=== PATIENT | female | born 1990 | race Caucasian/White ===

== ENCOUNTER 2021-04-08 00:12 | Emergency (ER) | payer MEDICAID ==
[2021-04-08] MEDS ORDERED: Dexamethasone 10 MG/ML SDV IM STA (00:58)
--- NOTE | 2021-04-08 01:00 | EDM.PDOC ---
ED HPI GENERAL MEDICAL PROBLEM - General Chief Complaint: Back Pain or Injury Stated Complaint: NERVE PAIN Time Seen by Provider: 04/08/21 00:48 - History of Present Illness INITIAL COMMENTS - FREE TEXT/NARRATIVE: History of present illness: [] Patient has severe left back pain and left hip pain. Right now the pain is in her back. Is very severe. Is been going on for more than a month. She has had an MRI and been told she has bulging disc. She has an appointment in May. Patient's pain radiates down the left side. She has a little bit of tingling in the but but she does not have any lack of sensation in the saddle area or lower extremities. She does not have any loss of motor function. She does not have any loss of bowel or bladder control. She does have urinary frequency for 24 hours without dysuria. Review of systems: As per history of present illness and below otherwise all systems reviewed and negative. Past medical history: As per history of present illness and as reviewed below otherwise nonco ntributory. Surgical history: As per history of present illness and as reviewed below otherwise noncontributory. Social history: No reported history of drug or alcohol abuse. Family history: As per history of present illness and as reviewed below otherwise noncontributory. Physical exam: Constitutional - well developed, well-nourished and in no acute distress HEENT - normocephalic, no evidence of trauma - external nose and mouth normal - no mass in neck and no JVD - mucosae moist EYES - full EOM, PERRL, no icterus - no evidence of inflammation, injection, or drainage Respiratory - no respiratory distress, equal bilateral expansion, lungs clear to auscultation and no abnormal lung sounds Cardiovascular - Regular Rhythm with S1 and S2 appreciated and no murmur, gallop or rub. GI - abdomen soft without distension or organomegaly - normal bowel sounds - no guard or rebound Musculoskeletal straight leg raise causes pain in left side moving to both right and left leg. There is contralateral pain in the right leg is lifted No gross deformity of long bones or joints - no tenderness, swelling or edema Neurologic -DTR brisk in lower extremities. Alert and oriented times four - CN II-XII grossly intact - motor sensory and coordination symmetrically normal Psychiatric - appropriate mood and affect with normal thought content Hematologic - No petechiae or purpura - mucosa appropriate color and sclera not pale - normal nail bed color and refill Integument - no rash or evidence of trauma - normal turgor Diagnostics: [] Therapeutics: [] Impression: [] Plan: [] Definitive disposition and diagnosis as appropriate pending reevaluation and review of above. left lower back Pain Score (Numeric/FACES): 8 - Related Data Allergies Allergy/AdvReac Type Severity Reaction Status Date / Time codeine Allergy Stomach Verified 04/08/21 00:38 Ache Home Meds: Home Meds Gabapentin 04/08/21 [History] methylPREDNISolone [Medrol Dose Pack] 4 mg PO DAILY #21 tab 04/08/21 [Rx] methylPREDNISolone [Medrol Dose Pack] 4 mg PO DAILY #21 tab 04/08/21 [Rx] Past Medical History - Past Health History Medical/Surgical History: Denies Medical/Surgical History HEENT History: Reports: None Cardiovascular History: Reports: None Respiratory History: Reports: None Gastrointestinal History: Reports: None Genitourinary History: Reports: None [employer] History: Reports: Musculoskeletal History: Reports: None Neurological History: Reports: None Psychiatric History: Reports: None Endocrine/Metabolic History: Reports: None Hematologic History: Reports: None Immunologic History: Reports: None Oncologic (Cancer) History: Reports: None Dermatologic History: Reports: None - Infectious Disease History Infectious Disease History: Reports: None - Past Surgical History Head Surgeries/Procedures: Reports: None Social & Family History - Family History Family Medical History: No Pertinent Family History - Tobacco Use Tobacco Use Status *Q: Never Tobacco User Second Hand Smoke Exposure: No - Caffeine Use Caffeine Use: Reports: None - Recreational Drug Use Recreational Drug Use: No ED ROS GENERAL - Review of Systems Review Of Systems: Comprehensive ROS is negative, except as noted in HPI. ED EXAM, GENERAL - Physical Exam Exam: See Below Free Text/Narrative:: My physical exam is in the HPI Course - Vital Signs Last Recorded V/S: Last Vital Signs Temp 36.8 C 04/08/21 01:56 Pulse 82 04/08/21 01:56 Resp 18 04/08/21 01:56 BP 133/72 04/08/21 01:56 Pulse Ox 97 04/08/21 01:56 - Orders/Labs/Meds Orders: Active Orders 24 hr Category Date Time Status UA W/MEGAN RFLX IF INDICATED [URIN] Stat Lab 04/08/21 01:44 Received Meds: Medications Discontinued Medications Generic Name Dose Route Start Last Admin Trade Name [place] PRN Reason Stop Dose Admin Dexamethasone 10 mg 04/08/21 00:58 04/08/21 01:45 Dexamethasone 10 Mg/Ml Sdv IM 04/08/21 00:59 10 mg STAT STA Administration Departure - Departure Time of Disposition: 01:57 Disposition: Home, Self-Care 01 Condition: Good Clinical Impression: Sciatica of left side - Discharge Information Prescriptions: methylPREDNISolone [Medrol Dose Pack] 4 mg PO DAILY #21 tab Instructions: Sciatica, [id number] Referrals: PCP,None [Primary Care Provider] - Forms: ED Department Discharge Additional Instructions: Turn immediately if you lose feeling motion or lose control of bowel or bladder. That is a true emergency. [facility] - Primary Care [address] [place] [id number] [place] [address] The following information is given to patients seen in the emergency department who are being discharged to home. This information is to outline your options for follow-up care. We provide all patients seen in our emergency department with a follow-up referral. The need for follow-up, as well as the timing and circumstances, are variable depending upon the specifics of your emergency department visit. If you don't have a primary care physician on staff, we will provide you with a referral. We always advise you to contact your personal physician following an emergency department visit to inform them of the circumstance of the visit and for follow-up with them and/or the need for any referrals to a consulting specialist. The emergency department will also refer you to a specialist when appropriate. This referral assures that you have the opportunity for follow-up care with a specialist. All of these measure are taken in an effort to provide you with optimal care, which includes your follow-up. Under all circumstances we always encourage you to contact your private physician who remains a resource for coordinating your care. When calling for follow-up care, please make the office aware that this follow-up is from your recent emergency room visit. If for any reason you are refused follow-up, please contact the [facility] Emergency Department at and asked to speak to the emergency department charge nurse. Sepsis Event Note (ED) - Evaluation Sepsis Screening Result: No Definite Risk - Focused Exam Vital Signs: Vital Signs Temp Pulse Resp BP Pulse Ox 04/08/21 01:56 36.8 C 82 18 133/72 97 04/08/21 00:34 36.6 C 82 18 111/67 98 - My Orders Last 24 Hours: My Active Orders 04/08/21 01:44 UA W/MEGAN RFLX IF INDICATED [URIN] Stat - Assessment/Plan Last 24 Hours: My Active Orders 04/08/21 01:44 UA W/MEGAN RFLX IF INDICATED [URIN] Stat
== END 2021-04-08 02:25 | disposition home or self-care (01) ==
LOC: MW.ED 00:12
DX: M54.42 Lumbago with sciatica, left side (principal); Z88.5 Allergy status to narcotic agent
CPT/HCPCS: 81001; 96372; 99283; J1100

== ENCOUNTER 2021-11-09 19:44 | Emergency (ER) | payer OTHER, MEDICAID ==
[2021-11-09] MEDS ORDERED: Acetaminophen/HYDROcodone 325-5 MG Tab PO ONE (20:49)
[2021-11-09] MEDS ORDERED: Diphtheria,Pertussis(Acell),Tetanus Vaccine 0.5 ML Syringe IM ONE (20:49)
[2021-11-09] MEDS ORDERED: Cephalexin 500 MG Cap PO ONE (20:49)
== END 2021-11-09 21:41 | disposition home or self-care (01) ==
LOC: MW.ED 19:44
DX: S62.366A Nondisplaced fracture of neck of fifth metacarpal bone, right hand, initial encounter for closed fracture (principal); S62.664A Nondisplaced fracture of distal phalanx of right ring finger, initial encounter for closed fracture; S60.512A Abrasion of left hand, initial encounter; S60.511A Abrasion of right hand, initial encounter; Z88.5 Allergy status to narcotic agent; Z23 Encounter for immunization; Z79.899 Other long term (current) drug therapy; V27.0XXA Motorcycle driver injured in collision with fixed or stationary object in nontraffic accident, initial encounter; Y92.410 Unspecified street and highway as the place of occurrence of the external cause
CPT/HCPCS: 29125; 73130; 90471; 90715; 99283; A9270

== ENCOUNTER 2021-11-15 08:30 | Day surgery (SDC) | payer OTHER, MEDICAID ==
[~2021-11-15 08:30] MED LIST: Albuterol 0.083% 2.5 MG/3 ML Neb Soln NEB PRN; HYDROmorphone 1 MG/ML Syringe IVPUSH PRN; Lactated Ringers 1,000 ML IV SCH; Metoclopramide 10 MG/2 ML SDV IVPUSH PRN; Morphine 4 MG/ML VIAL IVPUSH PRN; Naloxone 0.4 MG/ML SDV IVPUSH PRN; Ondansetron 4 MG/2 ML SDV IVPUSH PRN; fentaNYL 100 MCG/2 ML SDV IVPUSH PRN
[2021-11-15] MEDS ORDERED: HYDROmorphone 2 MG/ML Syringe ONE (10:25)
[2021-11-15] MEDS ORDERED: Propofol 200 MG/20 ML SDV ONE (10:25)
[2021-11-15] MEDS ORDERED: Bupivacaine 0.5% 30 ML SDV ONE (11:28)
[2021-11-15] MEDS ORDERED: fentaNYL 250 MCG/5 ML SDV ONE (12:13)
[2021-11-15] MEDS ORDERED: Succinylcholine/Sod PF 100 MG/5 ML SYRINGE IV ONE (12:53)
== END 2021-11-15 14:00 | disposition home or self-care (01) ==
LOC: MW.SDS 08:30
PROVIDERS: ATTEND Orthopaedic Surgery
DX: S62.326A Displaced fracture of shaft of fifth metacarpal bone, right hand, initial encounter for closed fracture (principal); S62.634A Displaced fracture of distal phalanx of right ring finger, initial encounter for closed fracture; Z88.5 Allergy status to narcotic agent; F41.9 Anxiety disorder, unspecified; F32.A Depression, unspecified; E66.9 Obesity, unspecified; Z90.89 Acquired absence of other organs; Z98.890 Other specified postprocedural states; Z68.35 Body mass index [BMI] 35.0-35.9, adult; Z87.891 Personal history of nicotine dependence; X58.XXXA Exposure to other specified factors, initial encounter
CPT/HCPCS: 26608; 81025; J0131; J0330; J0690; J2704; J3010; J3490; J7120; J1170

== ENCOUNTER 2022-11-27 18:11 | Emergency (ER) | payer MEDICAID | END 2022-11-27 18:54 | disposition left against medical advice (07) | LOC: MW.ED 18:11 | DX: Z53.21 Procedure and treatment not carried out due to patient leaving prior to being seen by health care provider (principal) ==